=== PATIENT | female | born 1960 | race African-American/Black ===

== ENCOUNTER 2020-05-19 11:52 | Emergency (ER) | payer OTHER ==
[2020-05-19 12:05] VITALS: BP 159/98; PULSE 79; TEMP 98.3; BMI 31.5
== END 2020-05-19 13:25 | disposition home or self-care (01) ==
LOC: JER 11:52
DX: R09.82 Postnasal drip (principal)
CPT/HCPCS: 71046-TC-FY; 99282-25; C9803; U0003